=== PATIENT | male | born 1965 | race Caucasian/White ===

== ENCOUNTER 2018-07-31 12:31 | Emergency (ER) | payer MEDICAID ==
[~2018-07-31] VITALS: Ht 170.2 cm; Wt 70.0 kg
[2018-07-31] MEDS ORDERED: LORAZEPAM 2MG/ML CPJ IM ONE (13:30)
[2018-07-31] MEDS ORDERED: LORAZEPAM 2MG/ML CPJ IV STA (14:00)
[2018-07-31] MEDS ORDERED: SODIUM CHLORIDE 0.9% 1000ML BAG (SEPSIS BOLUS) IV ONE (14:00)
[2018-07-31 14:22] LABS: BASOPHILS % 0.5 % (0.0-2.0); EOSINOPHILS % 0.1 % (0.0-5.0); HEMOGLOBIN. 14.9 g/dL (14.0-18.0); LYMPHOCYTES % 17.1 % (20.0-50.0); MEAN CORPUSCULAR HEMOGLOBIN 33.1 pg (28.0-32.0); MEAN CORPUSCULAR VOLUME 95.8 fL (80.0-94.0); MEAN PLATELET VOLUME 8.7 fl (7.4-10.4); MONOCYTES % 7.5 % (2.0-8.0); NEUTROPHILS % 74.8 % (40.0-76.0); PLATELET 336 x1000/uL (130-400); RED BLOOD CELL COUNT 4.49 mill/uL (4.7-6.1); RED CELL DISTRIBUTION WIDTH 13.6 % (11.6-14.6)
[2018-07-31 14:26] LABS: CHLORIDE 98 mEq/L (98-107)
[2018-07-31 14:32] LABS: ETHANOL BLOOD < 10 mg/dL
[2018-07-31] MEDS ORDERED: ZIPRASIDONE MESYLATE 20MG/VIAL IM ONE ×2 (18:10→18:15)
[2018-07-31 19:03] LABS: CLARITY URINE CLEAR (CLEAR); COLOR URINE YELLOW (YELLOW); KETONES URINE 1+ (NEGATIVE); LEUKOCYTE ESTERASE URINE NEGATIVE (NEGATIVE); NITRITE URINE NEGATIVE (NEGATIVE); OCCULT BLOOD URINE NEGATIVE (NEGATIVE); PH URINE 5.5 (4.5-8.0); PROTEIN URINE 2+ (NEGATIVE); SPECIFIC GRAVITY URINE 1.036 (1.005-1.030); UROBILINOGEN URINE 0.2 E.U./dL (0.2-1.0)
[2018-07-31 19:16] LABS: *AMPHETAMINES SCREEN URINE PRESUMTIVE POSITIVE (NEGATIVE)
[2018-07-31 19:17] LABS: *BARBITURATES SCREEN URINE NEGATIVE (NEGATIVE); *BENZODIAZEPINES SCREEN URINE NEGATIVE (NEGATIVE); *COCAINE SCREEN URINE NEGATIVE (NEGATIVE); CANNABINOID URINE SCREEN NEGATIVE (NEGATIVE); METHADONE URINE SCREEN NEGATIVE (NEGATIVE); OPIATES URINE SCREEN NEGATIVE (NEGATIVE); PHENCYCLIDINE URINE SCREEN NEGATIVE (NEGATIVE)
[2018-08-01] MEDS ORDERED: ZIPRASIDONE MESYLATE 20MG/VIAL IM ONE (04:45)
[2018-08-01] MEDS ORDERED: DIPHENHYDRAMINE 50MG/ML VIAL IM ONE (04:45)
[2018-08-01] MEDS ORDERED: LORAZEPAM 2MG/ML CPJ IM ONE (04:45)
[2018-08-01 08:35] VITALS: BP 134/73
== END 2018-08-01 08:38 | disposition home or self-care (01) ==
LOC: ER 12:58
DX: F23 Brief psychotic disorder (principal); F41.9 Anxiety disorder, unspecified; R00.0 Tachycardia, unspecified; E87.2 Acidosis; E11.65 Type 2 diabetes mellitus with hyperglycemia; I10 Essential (primary) hypertension; F15.10 Other stimulant abuse, uncomplicated; Z91.14 Patient's other noncompliance with medication regimen; Z78.1 Physical restraint status
CPT/HCPCS: 36415; 71045; 80053; 80305; 80307; 80329; 81003; 83605; 83880; 85025; 87040; 93005; 96361; 96372; 96374; 99285; G0482; J2060; J3486; J7030; Z7610